=== PATIENT | male | born 1975 | race African-American/Black ===

== ENCOUNTER 2017-02-01 12:38 | Observation (INO) | payer OTHER ==
[~2017-02-01] VITALS: Ht 175.3 cm; Wt 92.0 kg
[2017-02-01] VITALS (7 sets, daily range): BP systolic 121–144; BP diastolic 78–100; PULSE 73–92; RESP 14–20; TEMP 98.2–98.7; O2SAT 94–99
--- NOTE | 2017-02-01 12:42 | PD ---
Physical Exam Date Seen by Provider: Feb 01, 2017 Time Seen by Provider: 12:41 Narrative 41 yo male here for evaluation of abnormal EKG. Was told EKG shows old OR per EKG. [facility] on/off chest pain. Told to come here. No chest pain at this time. Vitals are stable in triage. Awaiting bed placement. Data Data Last Documented VS Vital Signs Date Time Temp Pulse Resp B/P (MAP) Pulse Ox O2 Delivery O2 Flow Rate FiO2 02/01/17 12:40 98.7 92 20 144/100 (115) 98 Room Air [facility] Medical Record Reviewed: Yes Supervised Visit with OSMEL: No Delmar Rachel Feb 01, 2017 12:42
--- NOTE | 2017-02-01 13:02 | RADRPT ---
EXAM DATE/TIME: 02/01/2017 12:54 [facility] COMPARISON: No previous studies available for comparison. INDICATIONS : Chest pain. MEDICAL HISTORY : None. SURGICAL HISTORY : None. ENCOUNTER: Initial ACUITY: 3 days PAIN SCORE: 7/10 LOCATION: Bilateral chest FINDINGS: PA and lateral views of the chest demonstrate the lungs to be symmetrically aerated without evidence of mass, infiltrate or effusion. The cardiomediastinal contours are unremarkable. Osseous structure s are intact. CONCLUSION: Normal examination. Brandon Rodarte Jr., MD on February 01, 2017 at 12:58 Board Certified Radiologist. This report was verified electronically.
[2017-02-01] MEDS ORDERED: CYAN1TAB24 PO (13:04)
[2017-02-01] MEDS ORDERED: ASPIRIN 81 MG CHEW TAB CHEW ONE (13:15)
--- NOTE | 2017-02-01 13:20 | PD ---
HPI . Chest pain Chief Complaint: Chest Pain Time Seen by Provider: 13:03 Travel History International Travel<30 days: No Contact w/Intl Traveler<30days: No Traveled to known affect area: No History of Present Illness HPI This patient presents with the chief complaint of chest pain. He reports the onset of symptoms 2-1/2 weeks ago. His symptoms come and go. He does not have chest pain daily. He states that his pain is exacerbated by movement and by deep breathing and is relieved by being still. His symptoms can last anywhere from 10-30 minutes. He describes the pain as sharp. He states that his maximal pain is 8-9/10 but that his current pain is 0. His pain is associated with tingling in the left arm. He states that he went to the [facility] today and was subsequently instructed to present to us for further evaluation. FOR[facility], LATER [facility] Past Medical History Medical History: Denies Significant Hx Past Surgical History Surgical History: No Previous Surgery Social History Alcohol Use: Yes (occasional) Tobacco Use: No Substance Use: No Allergies-Medications (Allergen,Severity, Reaction): Coded Allergies: No Known Allergies (Unverified , 02/01/17) Reported Meds & Prescriptions Reported Meds & Active Scripts Active Reported B12 (Cyanocobalamin) 1,000 Mcg Tab 1 Tab PO DAILY Review of Systems Except as stated in HPI: all other systems reviewed are Neg General / Constitutional: No: Fever, Chills Cardiovascular: Positive: Chest Pain or Discomfort Respiratory: No: Shortness of Breath Gastrointestinal: No: Nausea, Vomiting Neurologic: Positive: Paresthesia (left upper extremity) Physical Exam Narrative GENERAL: This patient appears comfortable. SKIN: Warm and dry. HEAD: Atraumatic. Normocephalic. EYES: Pupils equal and round. Extraocular movements are intact. ENT: No nasal bleeding or discharge. Mucous membranes pink and moist. NECK: Trachea midline. Neck is supple. CARDIOVASCULAR: Regular rate and rhythm. Heart sounds are normal. RESPIRATORY: No accessory muscle use. Lungs are clear with full air movement throughout. Chest wall is nontender. GASTROINTESTINAL: Abdomen soft, non-tender, nondistended. MUSCULOSKELETAL: No obvious deformities. No edema. NEUROLOGICAL: Awake and alert. No obvious cranial nerve deficits. Motor grossly within normal limits. Normal speech. PSYCHIATRIC: Appropriate mood and affect; insight and judgment normal. Data Data Last Documented VS Vital Signs Date Time Temp Pulse Resp B/P (MAP) Pulse Ox O2 Delivery O2 Flow Rate FiO2 02/01/17 13:00 97 02/01/17 12:40 98.7 92 20 144/100 (115) Room Air Orders Orders Electrocardiogram (02/01/17 12:42) Basic Metabolic Panel (Bmp) (02/01/17 12:42) Ckmb (Isoenzyme) Profile (02/01/17 12:42) Complete Blood Count With Diff (02/01/17 12:42) Magnesium (Mg) (02/01/17 12:42) Prothrombin Time / Inr (Pt) (02/01/17 12:42) Act Partial Throm Time (Ptt) (02/01/17 12:42) Troponin I (02/01/17 12:42) Chest, Pa & Lat (02/01/17 12:42) Aspirin Chew (Aspirin Chew) (02/01/17 13:15) CKMB (02/01/17 13:05) CKMB% (02/01/17 13:05) Labs Laboratory Tests Test 02/01/17 13:05 White Blood Count 7.7 TH/MM3 Red Blood Count 5.49 MIL/MM3 Hemoglobin 15.1 GM/DL Hematocrit 46.3 % Mean Corpuscular Volume 84.3 FL Mean Corpuscular Hemoglobin 27.4 PG Mean Corpuscular Hemoglobin Concent 32.5 % Red Cell Distribution Width 14.5 % Platelet Count 292 TH/MM3 Mean Platelet Volume 8.7 FL Neutrophils (%) (Auto) 56.6 % Lymphocytes (%) (Auto) 31.8 % Monocytes (%) (Auto) 9.1 % Eosinophils (%) (Auto) 1.7 % Basophils (%) (Auto) 0.8 % Neutrophils # (Auto) 4.4 TH/MM3 Lymphocytes # (Auto) 2.5 TH/MM3 Monocytes # (Auto) 0.7 TH/MM3 Eosinophils # (Auto) 0.1 TH/MM3 Basophils # (Auto) 0.1 TH/MM3 CBC Comment DIFF FINAL Differential Comment Prothrombin Time 11.3 SEC Prothromb Time International Ratio 1.0 RATIO Activated Partial Thromboplast Time 28.2 SEC Blood Urea Nitrogen 16 MG/DL Creatinine 1.20 MG/DL Random Glucose 85 MG/DL Calcium Level 9.5 MG/DL Magnesium Level 2.5 MG/DL Sodium Level 140 MEQ/L Potassium Level 4.1 MEQ/L Chloride Level 107 MEQ/L Carbon Dioxide Level 25.4 MEQ/L Anion Gap 8 MEQ/L Estimat Glomerular Filtration Rate 81 ML/MIN Total Creatine Kinase 274 U/L Creatine Kinase MB 0.6 NG/ML Troponin I LESS THAN 0.02 NG/ML MDM Medical Decision Making Medical Screen Exam Complete: Yes Emergency Medical Condition: Yes Interpretation(s) EKG shows a sinus rhythm with LVH. No significant ST segment elevation or depression. Differential Diagnosis Differential diagnosis of chest pain includes but is not limited to musculoskeletal pain, pulmonary embolism, acute coronary syndrome, pneumonia, pleurisy Narrative Course This patient presents with chest pain. He has been having symptoms for 2-1/2 weeks. The symptoms come and go. They are generally very brief and are exacerbated by movement and deep breathing. My plan is to do initial cardiac enzymes, etc. and then admit him to the chest pain center for further evaluation. Last Impressions Chest X-Ray 02/01/17 1242 Signed Impressions: Service Date/Time: Wednesday, February 01, 2017 12:54 - CONCLUSION: Normal examination. Brandon Rodarte Jr., MD CBC & BMP Diagram 02/01/17 13:05 Calcium Level 9.5, Magnesium Level 2.5 Cardiac enzymes are negative. Diagnosis Primary Impression: Chest pain Qualified Codes: R07.9 - Chest pain, unspecified Admitting Information Admitting Physician Requests: Observation Condition: Stable Patricia Holley MD Feb 01, 2017 13:20
[2017-02-01 13:27] LABS: AUTOMATED NEUTROPHIL # 4.4 TH/MM3 (1.8-7.7); BASOPHIL # 0.1 TH/MM3 (0-0.2); BASOPHIL % 0.8 % (0.0-2.0); EOSINOPHIL # 0.1 TH/MM3 (0-0.4); EOSINOPHIL % 1.7 % (0.0-4.0); HEMATOCRIT 46.3 % (39.0-51.0); HEMO FLAGS DIFF FINAL; LYMPH % 31.8 % (9.0-44.0); LYMPHOCYTE # 2.5 TH/MM3 (1.0-4.8); MEAN CELL VOLUME 84.3 FL (80.0-100.0); MEAN CORPUSCULAR HEMOGLOBIN 27.4 PG (27.0-34.0); MEAN CORPUSCULAR HGB CONC 32.5 % (32.0-36.0); MONO % 9.1 % (0.0-8.0); NEUT % 56.6 % (16.0-70.0); PLATELET COUNT 292 TH/MM3 (150-450); RED BLOOD COUNT 5.49 MIL/MM3 (4.50-5.90); RED CELL DISTRIBUTION WIDTH 14.5 % (11.6-17.2); WHITE BLOOD COUNT 7.7 TH/MM3 (4.0-11.0)
[2017-02-01 13:38] LABS: APTT (PATIENT) 28.2 SEC (24.3-30.1); PROTHROMBIN TIME - PATIENT 11.3 SEC (9.8-11.6)
[2017-02-01 13:44] LABS: ANION GAP 8 MEQ/L (5-15); BICARBONATE 25.4 MEQ/L (21.0-32.0); BLOOD UREA NITROGEN 16 MG/DL (7-18); CHLORIDE 107 MEQ/L (98-107); GLOMERULAR FILTRATION RATE 81 ML/MIN (>89); MAGNESIUM 2.5 MG/DL (1.5-2.5); POTASSIUM 4.1 MEQ/L (3.5-5.1); SODIUM (NA) 140 MEQ/L (136-145)
[2017-02-01 13:48] LABS: CREATINE KINASE 274 U/L (39-308)
[2017-02-01 14:01] LABS: CKMB 0.6 NG/ML (0.5-3.6)
[2017-02-01] MEDS ORDERED: ACETAMINOPHEN 500 MG CPLT PO PRN (15:15)
[2017-02-01] MEDS ORDERED: SODIUM CHLORIDE 0.9% FLUSH 10 ML FLUSH IV FLUSH PRN (15:15)
[2017-02-01] MEDS ORDERED: ONDANSETRON HCL 4 MG/2 ML VIAL IV PRN (15:15)
[2017-02-01] MEDS ORDERED: NITROGLYCERIN 0.4 MG SL 25 TABS/BTL SL PRN (15:15)
--- NOTE | 2017-02-01 17:17 | HHI.HP ---
HPI Primary Care Physician [facility] Chief Complaint Chest pain History of Present Illness 41-year-old male with no past medical history presents to emergency room for further evaluation of chest pain. Onset 2 weeks ago. Location left anterior chest described as sharp pains. Duration varies. Today's episode lasted 30 minutes. Radiation to left axilla area described as tingling. No associated symptoms of nausea, vomiting, shortness breath, or diaphoresis. No known precipitating or relieving factors. Known injury or trauma to affected area. Deep breathing and movement makes pain worse. Denies similar pain in the past. Patient seen and evaluated [place] [facility] today and advised to be seen in ER for further evaluation. Review of Systems General: No fatigue,weakness, fever, chills, recent illness, or change in appetite. Has been his general state of health. Continuing to run 20-30 minutes daily. HEENT: No [place], no nasal congestion or drainage CV: As stated above. No current chest pain or pressure. Remote history of palpitations. No intermittent leg pain. RESP: No SOB, cough, or history of asthma GI: No nausea, vomiting, bowel changes, diarrhea, pain, or blood in the stool. : No dysuria EXT: No lower leg edema, no paraesthesias MS: No discomfort or change in ROM NEURO: No difficulty with balance, LOC, motor/sensory deficits PSYCH: No anxiety, depression, or situational stress SKIN: No rashes, no concerning lesions Past Family Social History Allergies: Coded Allergies: No Known Allergies (Unverified , 02/01/17) Past Medical History None Past Surgical History None Reported Medications Active Reported B12 (Cyanocobalamin) 1,000 Mcg Tab 1 Tab PO DAILY Active Ordered Medications Current Medications Medications (Trade) Dose Ordered Sig/Alycia Route Start Time Stop Time Status Last Admin (NS Flush) 2 ml UNSCH PRN IV FLUSH 02/01/17 15:15 (NS Flush) 2 ml BID IV FLUSH 02/01/17 21:00 (Tylenol) 500 mg Q4H PRN PO 02/01/17 15:15 (Zofran Inj) 4 mg Q6H PRN IV 02/01/17 15:15 (Nitrostat Sl) 0.4 mg Q5M PRN SL 02/01/17 15:15 (Aspirin) 325 mg DAILY PO 02/02/17 09:00 Family History Noncontributory for early onset cardiovascular disease Social History No known diabetes, hypertension, or hyperlipidemia. Quit smoking 2014, prior to quitting, smoked 1 pack/daily. Rare alcohol use. Denies any illegal drug use. Next endorses an active lifestyle. Runs daily 20-30 minutes. Past cardiac testing None Physical Exam Vital Signs Vital Signs Date Time Temp Pulse Resp B/P (MAP) Pulse Ox O2 Delivery O2 Flow Rate FiO2 02/01/17 16:41 78 02/01/17 15:56 98.4 73 18 121/88 (99) 97 02/01/17 15:32 02/01/17 14:30 77 14 124/82 (96) 99 Room Air 02/01/17 13:00 97 02/01/17 12:40 98.7 92 20 144/100 (115) 98 Room Air Physical Exam GENERAL: Alert WN, WD, NAD, pleasant, Kirsten male HEAD: NC, AT EYES: Sclera clear, conjunctiva without injection ENT: Mucous membranes pink and moist CV: RRR, without murmur, rub, gallop, no JVD, S1-S2 no S3-S4. RESP: Clear lungs throughout bilateral, no crackles, wheeze, rhonchi, symmetrical chest rise, nonlabored, able to speak in full sentences ABD: Soft, NT, ND, no masses, positive bowel tones BACK: No scoliosis EXT: Pulses +24, no dependent edema MS: Normal tone 4 extremities, nontender, no obvious deformities, full range of motion NEURO: CN II through CN XII grossly intact, motor strength 5/5 PSYCH: A+O 3, pleasant affect, appropriate speech, appropriate mood and affect , insight and judgment SKIN: Normal turgor, normal texture, no lesions, no rashes, brisk cap refill, even hair distribution Laboratory Laboratory Tests Test 02/01/17 13:05 02/01/17 16:28 White Blood Count 7.7 Red Blood Count 5.49 Hemoglobin 15.1 Hematocrit 46.3 Mean Corpuscular Volume 84.3 Mean Corpuscular Hemoglobin 27.4 Mean Corpuscular Hemoglobin Concent 32.5 Red Cell Distribution Width 14.5 Platelet Count 292 Mean Platelet Volume 8.7 Neutrophils (%) (Auto) 56.6 Lymphocytes (%) (Auto) 31.8 Monocytes (%) (Auto) 9.1 Eosinophils (%) (Auto) 1.7 Basophils (%) (Auto) 0.8 Neutrophils # (Auto) 4.4 Lymphocytes # (Auto) 2.5 Monocytes # (Auto) 0.7 Eosinophils # (Auto) 0.1 Basophils # (Auto) 0.1 CBC Comment DIFF FINAL Differential Comment Prothrombin Time 11.3 Prothromb Time International Ratio 1.0 Activated Partial Thromboplast Time 28.2 Blood Urea Nitrogen 16 Creatinine 1.20 Random Glucose 85 Calcium Level 9.5 Magnesium Level 2.5 Sodium Level 140 Potassium Level 4.1 Chloride Level 107 Carbon Dioxide Level 25.4 Anion Gap 8 Estimat Glomerular Filtration Rate 81 Total Creatine Kinase 274 Creatine Kinase MB 0.6 Troponin I LESS THAN 0.02 Result Diagram: 02/01/17 1305 02/01/17 1305 Imaging Last Impressions Chest X-Ray 02/01/17 1242 Signed Impressions: Service Date/Time: Wednesday, February 01, 2017 12:54 - CONCLUSION: Normal examination. Brandon Rodarte Jr., MD Course EKG Normal sinus rhythm, normal axis, non specific st changed, inverted T-waves inferiorly, Q waves inferiorly Caprini VTE Risk Assessment Caprini VTE Risk Assessment: No/Low Risk (score <= 1) Caprini Risk Assessment Model Point Value = 1 Point Value = 2 Point Value = 3 Point Value = 5 Age 41-60 Minor surgery BMI > 25 kg/m2 Swollen legs Varicose veins or History of unexplained or recurrent spontaneous Oral contraceptives or hormone replacement Sepsis (< 1 month) Serious lung disease, including pneumonia (< 1 month) Abnormal pulmonary function Acute myocardial infarction Congestive heart failure (< 1 month) History of inflammatory bowel disease Medical patient at bed rest Age 61-74 Arthroscopic surgery Major open surgery (> 45 min) Laparoscopic surgery (> 45 min) Malignancy Confined to bed (> 72 hours) Immobilizing plaster cast Central venous access Age >= 75 History of VTE Family history of VTE Factor V Leiden Prothrombin [id number] Lupus anticoagulant Anticardiolipin antibodies Elevated serum homocysteine Heparin-induced thrombocytopenia Other congenital or acquired thrombophilia Stroke (< 1 month) Elective arthroplasty Hip, pelvis, or leg fracture Acute spinal cord injury (< 1 month) Prophylaxis Regimen Total Risk Factor Score Risk Level Prophylaxis Regimen 0-1 Low Early ambulation 2 Moderate Order ONE of the following: *Sequential Compression Device (SCD) *Heparin 5000 units SQ BID 3-4 Higher Order ONE of the following medications: *Heparin 5000 units SQ TID *Enoxaparin/Lovenox 40 mg SQ daily (WT < 150 kg, CrCl > 30 mL/min) *Enoxaparin/Lovenox 30 mg SQ daily (WT < 150 kg, CrCl > 10-29 mL/min) *Enoxaparin/Lovenox 30 mg SQ BID (WT < 150 kg, CrCl > 30 mL/min) AND/OR *Sequential Compression Device (SCD) 5 or more Highest Order ONE of the following medications: *Heparin 5000 units SQ TID (Preferred with Epidurals) *Enoxaparin/Lovenox 40 mg SQ daily (WT < 150 kg, CrCl > 30 mL/min) *Enoxaparin/Lovenox 30 mg SQ daily (WT < 150 kg, CrCl > 10-29 mL/min) *Enoxaparin/Lovenox 30 mg SQ BID (WT < 150 kg, CrCl > 30 mL/min) AND *Sequential Compression Device (SCD) Assessment and Plan Assessment and Plan #1 Atypical chest pain-admitted to chest pain center. Ruled out with 3 sets of EKGs and cardiac enzymes. Seen and evaluated by Dr. Angie Freitas. Plan for nuclear exercise stress test in a.m. Patient agreeable to plan of care. Gisele Garrido Feb 01, 2017 17:17
[2017-02-01 17:24] LABS: CREATINE KINASE 225 U/L (39-308)
[2017-02-01 17:37] LABS: CKMB 0.7 NG/ML (0.5-3.6)
--- NOTE | 2017-02-01 17:41 | EKG ---
Date Performed: 02/01/2017 Time Performed: 13:04:43 PTAGE: 41 years EKG: Sinus rhythm VOLTAGE CRITERIA FOR LVH INFERIOR MYOCARDIAL INFARCTION ABNORMAL ECG NO PREVIOUS TRACING DOCTOR: Angie Freitas Interpretating Date/Time 02/01/2017 17:39:41
[2017-02-01] MEDS: SODIUM CHLORIDE 0.9% FLUSH 10 ML FLUSH IV FLUSH SCH (20:09)
[2017-02-01 21:12] LABS: CREATINE KINASE 129 U/L (39-308)
[2017-02-01 21:25] LABS: CKMB LESS THAN 0.5 NG/ML (0.5-3.6)
[2017-02-02 03:25] VITALS: BP 130/89; PULSE 78; RESP 18; TEMP 98.5; O2SAT 98
[2017-02-02 07:37] VITALS: PULSE 89
[2017-02-02] MEDS: SODIUM CHLORIDE 0.9% FLUSH 10 ML FLUSH IV FLUSH SCH (07:49)
[2017-02-02 07:56] VITALS: BP 134/92; PULSE 82; RESP 20; TEMP 97.8; O2SAT 95
[2017-02-02] MEDS ORDERED: ASPIRIN 325 MG TAB PO SCH (09:00)
--- NOTE | 2017-02-02 10:58 | RADRPT ---
EXAM DATE/TIME: 02/02/2017 08:37 [facility] COMPARISON: No previous studies available for comparison. INDICATIONS : Left chest pain for 2 weeks. Angina DOSE: 26.1 mCi Tc99m Myoview at stress 8.1 mCi Tc99m Myoview at rest REST HEART RATE: 87 BPM TARGET HEART RATE: 153 BPM MAX HEART RATE: 161 BPM REST BLOOD PRESSURE: 118/72 mmHg MAX BLOOD PRESSURE: 140/70 mmHg EJECTION FRACTION: 64% MEDICAL HISTORY : None SURGICAL HISTORY : None. ENCOUNTER: Initial ACUITY: 2 days PAIN SCALE: 3/10 LOCATION: Left chest TECHNIQUE: The patient underwent upright treadmill exercise in the chest pain center. Continuous ECG tracing wa s monitored during stress. Gated SPECT imaging was performed after stress, and conventional SPECT im aging was performed at rest. The examination was performed on a SPECT/CT scanner, both attenuation-c orrected and non-corrected datasets were reviewed. FINDINGS: DISTRIBUTION: The maximum perfused segment at stress is in the anterolateral wall. PERFUSION STUDY: The pattern of perfusion at stress is within normal limits. GATED STUDY: There is intact wall motion and thickening without hypokinetic or dyskinetic segments. CONCLUSION: 1. No reversible perfusion defect to indicate stress-induced myocardial ischemia identified. RISK CATEGORY: Low (<1% Annual Mortality Rate) Kobe Donahue MD on February 02, 2017 at 10:54 Board Certified Radiologist. This report was verified electronically.
[2017-02-02 11:56] VITALS: BP 126/81; PULSE 58; RESP 19; TEMP 97.9; O2SAT 94
--- NOTE | 2017-02-02 13:22 | HHI.DCPOC ---
Discharge Care Plan Diagnosis: (1) Chest pain Goals to Promote Your Health * To prevent worsening of your condition and complications * To maintain your health at the optimal level Directions to Meet Your Goals Take your medications as prescribed Follow your dietary instruction Follow activity as directed Keep your appointments as scheduled Take your immunizations and boosters as scheduled If your symptoms worsen call your PCP, if no PCP go to Urgent Care Center or Emergency Room Smoking is Dangerous to Your Health. Avoid second hand smoke Call the 24-hour hour crisis hotline for domestic abuse at Ritchie Pagan Feb 02, 2017 13:22
--- NOTE | 2017-02-02 16:31 | EKG ---
Date Performed: 02/01/2017 Time Performed: 19:11:42 PTAGE: 41 years EKG: Sinus rhythm VOLTAGE CRITERIA FOR LVH INFERIOR MYOCARDIAL INFARCTION ABNORMAL ECG PREVIOUS TRACING : 02/01/2017 16.05 Since previous tracing, no significant change noted DOCTOR: Mason Savage Interpretating Date/Time 02/02/2017 16:29:45
--- NOTE | 2017-02-02 16:34 | EKG ---
Date Performed: 02/01/2017 Time Performed: 16:05:53 PTAGE: 41 years EKG: Sinus rhythm VOLTAGE CRITERIA FOR LVH INFERIOR MYOCARDIAL INFARCTION ABNORMAL ECG PREVIOUS TRACING : 02/01/2017 13.04 Since previous tracing, no significant change noted DOCTOR: Mason Savage Interpretating Date/Time 02/02/2017 16:32:56
--- NOTE | 2017-02-02 16:38 | TR ---
Date Performed: 02/02/2017 Time Performed: 09:44:39 DOCTOR: Mason Savage DRUG LIST: CLINICAL HISTORY: CHEST PAIN REASON FOR TEST: REASON FOR ENDING: OBSERVATION: CONCLUSION: NUCLEAR ETT ABBY PROTOCOL. NO CP. MILD SOB.Maximum GS=315 % Max HR Achieved=89.0% M aximum EP=780/70 Total Exercise Time=9:16 COMMENTS: Radionuclide was injected one minute prior to ending test. Nuclear imaging and interp retation are pending.
== END 2017-02-02 13:53 | disposition home or self-care (01) ==
LOC: NEPC 12:38 → NEDA 14:22 → NEPFCDU 15:25
PROVIDERS: ADMIT Internal Medicine Interventional Cardiology; ATTEND Internal Medicine Interventional Cardiology
DX: R07.89 Other chest pain (principal); R94.31 Abnormal electrocardiogram [ECG] [EKG]
CPT/HCPCS: 71020; 78452; 80048; 82550; 82552; 83735; 84484; 85025; 85610; 85730; 93005; 93017; 99285; A9502; G0378